=== PATIENT | male | born 1950 | race Caucasian/White ===

== ENCOUNTER 2016-06-14 15:21 | Inpatient (IN) | payer MEDICARE, OTHER ==
[~2016-06-14] VITALS: Ht 170.2 cm; Wt 47.6 kg
[~2016-06-14 15:21] MED LIST: ASPI-482 PO; BUDE10.2 IH; DILT30TA26 PO; FLUO10CA13 PO; OXYB5TAB PO; PROAIR HFA8.5 GM IH; TIOT18CA IH
[2016-06-14 16:00] VITALS: BP 121/60
[2016-06-14] MEDS ORDERED: HEPARIN PF for SUB-Q USE 5,000 UNIT/0.5 ML VIAL. SQ SCH (16:00)
[2016-06-14] MEDS ORDERED: MORPHINE SULFATE 2 MG/ML DISP.SYRIN. IV PRN (16:00)
[2016-06-14] MEDS ORDERED: ALBUTEROL SULFATE 2.5 MG/3 ML NEBU. NEB PRN (16:00)
[2016-06-14] MEDS ORDERED: ACETAMINOPHEN 325 MG TABLET. PO PRN (16:00)
[2016-06-14] MEDS: IPRATRPIUM/ALBUTEROL 0.5/2.5MG 3 ML NEBU. NEB SCH ×2 (16:00→20:23)
[2016-06-14] MEDS ORDERED: ONDANSETRON PF 4 MG/2 ML VIAL. IV PRN (16:00)
[2016-06-14 16:24] LABS: BASO % 0 % (0-3); EOS % 0 % (0-3); HEMATOCRIT 39.1 % (39.0-53.0); HEMOGLOBIN 12.4 g/dL (13.0-17.5); LYMPH # 0.2 x10^3/uL (1.0-4.8); LYMPH % 2 % (24-48); MEAN CORPUSCULAR HEMOGLOBIN 30 pg (25-35); MEAN CORPUSCULAR HGB CONC 32 g/dL (31-37); MEAN CORPUSCULAR VOLUME 95 fL (79-100); MONO % 1 % (0-9); NEUT % 97 % (31-73); PLATELET COUNT 303 x10^3/uL (140-400); RED CELL DISTRIBUTION WIDTH 13.8 % (11.5-14.5); WHITE BLOOD COUNT 9.8 x10^3/uL (4.0-11.0)
[2016-06-14 16:32] LABS: PROTHROMBIN TIME PATIENT 12.4 SEC (11.7-14.0)
[2016-06-14 16:41] LABS: CALCIUM 9.2 mg/dL (8.5-10.1); CREATININE 0.8 mg/dL (0.7-1.3); GFR 96.1; POTASSIUM 4.7 mmol/L (3.5-5.1)
[2016-06-14 16:47] LABS: % BASOS 2 % (0-3); PLT ESTIMATE ADEQUATE (ADEQUATE)
[2016-06-14] MEDS ORDERED: LORA0.5T PO (16:51)
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
[2016-06-14] MEDS ORDERED: DILTIAZEM HCL 30 MG TABLET PO SCH (17:00)
--- NOTE | 2016-06-14 17:03 | RAD ---
Portable AP upright view CXR: Clinical indications: COPD. Comparison: March 28, 2015. Findings: Hyperinflation is seen consistent with COPD. No acute lung infiltrate or pleural effusion or pulmonary edema or lung mass or pneumothorax is seen. The heart size, pulmonary vasculature, mediastinum and both guy are unremarkable. Old healed left rib cage fractures are seen. Impression: No acute radiographic abnormality is seen. COPD
--- NOTE | 2016-06-14 17:40 | EKG ---
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
[2016-06-14] MEDS: ENOXAPARIN 40 MG/0.4 ML SYRINGE. SQ SCH (18:42)
[2016-06-14] MEDS: FLUOXETINE HCL 10 MG PO SCH (18:42)
[2016-06-14] MEDS: LORAZEPAM 0.5 MG TABLET. PO PRN (18:42)
[2016-06-14] MEDS: methylPREDNISolone SOD SUCC PF 40 MG/ML VIAL. IV SCH ×2 (18:42→21:17)
[2016-06-14 19:00] VITALS: BP 124/67
[2016-06-14] MEDS ORDERED: IPRATRPIUM/ALBUTEROL 0.5/2.5MG 3 ML NEBU. NEB SCH (20:00)
[2016-06-14] MEDS: BUDESONIDE 0.5 MG/2 ML NEBU. NEB SCH (20:26)
[2016-06-14] MEDS ORDERED: LORAZEPAM 0.5 MG TABLET. PO SCH (21:00)
[2016-06-14] MEDS ORDERED: NON FORMULARY ITEM (Budesonide/Formoterol Fumarate (Symbicort 160-4.5 Mcg Inhaler) 2 PUFF) IH SCH (21:00)
[2016-06-14] MEDS: FAMOTIDINE 20 MG TABLET. PO SCH (21:16)
[2016-06-14] MEDS: OXYBUTYNIN CHLORIDE 5 MG TABLET PO SCH (21:16)
[2016-06-14] MEDS: DOXYCYCLINE HYCLATE 100 MG TABLET PO SCH (21:16)
[2016-06-14 23:00] VITALS: BP 117/67
[2016-06-15 03:00] VITALS: BP 117/61
[2016-06-15 05:32] LABS: BASO % 0 % (0-3); EOS % 0 % (0-3); HEMATOCRIT 34.8 % (39.0-53.0); HEMOGLOBIN 11.3 g/dL (13.0-17.5); LYMPH # 0.5 x10^3/uL (1.0-4.8); LYMPH % 7 % (24-48); MEAN CORPUSCULAR HEMOGLOBIN 31 pg (25-35); MEAN CORPUSCULAR HGB CONC 33 g/dL (31-37); MEAN CORPUSCULAR VOLUME 94 fL (79-100); MONO % 2 % (0-9); NEUT % 91 % (31-73); PLATELET COUNT 277 x10^3/uL (140-400); RED BLOOD COUNT 3.71 x10^6/uL (4.30-5.70); RED CELL DISTRIBUTION WIDTH 13.7 % (11.5-14.5)
[2016-06-15 05:42] LABS: CALCIUM 8.8 mg/dL (8.5-10.1); CREATININE 0.8 mg/dL (0.7-1.3); GFR 96.1; POTASSIUM 4.6 mmol/L (3.5-5.1)
[2016-06-15 07:58] VITALS: BP 113/67
[2016-06-15] MEDS: IPRATRPIUM/ALBUTEROL 0.5/2.5MG 3 ML NEBU. NEB SCH ×4 (08:03→21:05)
[2016-06-15] MEDS: BUDESONIDE 0.5 MG/2 ML NEBU. NEB SCH ×2 (08:03→21:05)
[2016-06-15] MEDS: ASPIRIN ENTERIC COATED 81 MG TABLET.DR. PO SCH (08:46)
[2016-06-15] MEDS: methylPREDNISolone SOD SUCC PF 40 MG/ML VIAL. IV SCH ×2 (08:46→21:40)
[2016-06-15] MEDS: DOXYCYCLINE HYCLATE 100 MG TABLET PO SCH ×2 (08:46→21:40)
[2016-06-15] MEDS: OXYBUTYNIN CHLORIDE 5 MG TABLET PO SCH (08:46)
[2016-06-15] MEDS: FLUOXETINE HCL 10 MG PO SCH (08:47)
[2016-06-15] MEDS: LORAZEPAM 0.5 MG TABLET. PO PRN (08:47)
[2016-06-15] MEDS ORDERED: NON FORMULARY ITEM (Tiotropium Bromide (Spiriva) 2 INH) IH SCH (09:00)
--- NOTE | 2016-06-15 09:19 | PDOC ---
Provider Note Provider Note [id number] acute on chronic resp fail ae of copd acute bronchitis steroid, abx, see orders. RICHMOND GARCIA MD Jun 15, 2016 09:19
[2016-06-15 09:37] LABS: BILIRUBIN,URINE NEGATIVE (NEG); GLUCOSE,URINE >=1000 mg/dL (NEG); NITRITE,URINE NEGATIVE (NEG); PH,URINE 6.5; PROTEIN,URINE NEGATIVE (NEG-TRACE); UROBILINOGEN,URINE 0.2 mg/dL (0.2 mg/dL)
--- NOTE | 2016-06-15 09:50 | CONS ---
DATE OF CONSULTATION: 06/15/2016 I was asked to see this 66-year-old gentleman for [id number] respiratory failure, acute exacerbation of COPD. HISTORY OF PRESENT ILLNESS: He has history of 43-kman-furl smoking, stopped smoking in 1998. He is on oxygen at 2-4 liters per minute via nasal cannula. He has not felt good for the past week. He has had increased shortness of breath, cough with yellowish-greenish sputum production, wheezing, runny nose and gastroesophageal reflux symptoms. He denies chest pain. PAST MEDICAL HISTORY: Hypertension, COPD, chronic respiratory failure. SOCIAL HISTORY: History of 51-yrnw-dlhe smoking, stopped smoking in 1998. FAMILY HISTORY: Positive for hypertension. ALLERGIES: PENICILLIN AND SERTRALINE. MEDICATIONS: Currently he is on Solu-Medrol 40 mg IV every 12 hours, aspirin, Pepcid, doxycycline 100 b.i.d., Pulmicort, Lovenox 40 mg daily, Ativan, DuoNeb q.i.d. REVIEW OF SYSTEMS: As mentioned as above, other systems are otherwise negative. PHYSICAL EXAMINATION: GENERAL: He is a thin gentleman. VITAL SIGNS: His O2 saturation is 96% on 2 liters of oxygen, respiratory rate 20, heart rate 82, blood pressure 132/67, temperature 98. HEENT: Normocephalic, atraumatic. Pupils are equal, round, and reactive to light. Throat is clear. Nose: There is inflamed mucosa. NECK: There is no JVD, lymphadenopathy or thyromegaly. CARDIOVASCULAR: Regular rate and rhythm. Distant heart sounds. PMI is not displaced. CHEST: Inspection is normal. LUNGS: There are diminished breath sounds and expiratory wheezing. ABDOMEN: Soft. Bowel sounds are good. There is no mass. EXTREMITIES: There is no edema. LYMPHATICS: There is no lymphadenopathy. NEUROLOGIC: He is alert and oriented. SKIN: Chronic changes. LABORATORY DATA: I reviewed the following lab data: Chest x-ray shows COPD changes, no infiltrate. WBC 7, hemoglobin 11.3, platelets 277. Sodium 138, potassium 4.6, chloride 101, CO2 is 34, glucose 249, BUN 19, creatinine 0.8. IMPRESSION: 1. Acute on chronic respiratory failure, multifactorial in etiology including acute exacerbation of chronic obstructive pulmonary disease and acute bronchitis. 2. Acute exacerbation of chronic obstructive pulmonary disease. 3. Acute bronchitis. 4. Hypertension. 5. Anemia. 6. Elevated blood glucose. 7. Allergic rhinitis. PLAN AND RECOMMENDATIONS: 1. Titrate FiO2 to keep O2 saturation 92%. 2. DuoNeb. 3. Pulmicort. 4. Solu-Medrol 40 mg IV every 12 hours. 5. Doxycycline. 6. Lovenox and Pepcid for stress ulcer prophylaxis. 7. Add Singulair. 8. Monitor respiratory status very closely. 9. The findings and recommendations were discussed with the patient. He understood and agreed to proceed with the plan. I have answered all of his questions. Thank you very much for allowing me to participate in care of this very nice gentleman. RICHMOND GARCIA M.D. : Moustapha JOB#: [id number] / [id number] MIKHAIL
[2016-06-15 10:17] VITALS: BP 115/67
[2016-06-15 10:19] LABS: BACTERIA,URINE 0 /HPF (0-FEW); RBC,URINE 0 /HPF (0-2); SQUAMOUS EPITHELIAL CELL,UR FEW /LPF
--- NOTE | 2016-06-15 12:53 | PDOC ---
PROGRESS NOTES Chief Complaint Chief Complaint 1. dyspnea , copd exacerbation 2. chronic resp failure 3. mal nutrition, moderate 4. h/o CAD 5. HTN 6. stable systolic CHF History of Present Illness History of Present Illness Breathing better CLaims quit smoking Dec BS on ausculattion, mild to mod wheezing Eating lunch CXR neg Hgb 11. WBC 7 Transferred from [place] pCO2 was 60s - was on BIPA P at [place]: CPM Per pulmo PT/OT OK to t.o CVC Dw RN Vitals Vitals Vital Signs Date Time Temp Pulse Resp B/P Pulse Ox O2 Delivery O2 Flow Rate FiO2 06/15/16 12:05 97 Nasal Cannula 2.0 06/15/16 10:17 98.1 85 18 115/67 98.1 Physical Exam General: Alert, Oriented X3, Cooperative, No acute distress Lungs: Clear, Other (dec BS, wheexzing mild to mod) Abdomen: Normal bowel sounds Extremities: No clubbing, No cyanosis Skin: No rashes, No breakdown Labs LABS Laboratory Tests Test 06/14/16 16:15 06/15/16 01:00 06/15/16 04:00 White Blood Count 9.8x10^3/uL (4.0-11.0) 7.0x10^3/uL (4.0-11.0) Red Blood Count 4.10x10^6/uL (4.30-5.70) 3.71x10^6/uL (4.30-5.70) Hemoglobin 12.4g/dL (13.0-17.5) 11.3g/dL (13.0-17.5) Hematocrit 39.1% (39.0-53.0) 34.8% (39.0-53.0) Mean Corpuscular Volume 95fL (79-100) 94fL (79-100) Mean Corpuscular Hemoglobin 30pg (25-35) 31pg (25-35) Mean Corpuscular Hemoglobin Concent 32g/dL (31-37) 33g/dL (31-37) Red Cell Distribution Width 13.8% (11.5-14.5) 13.7% (11.5-14.5) Platelet Count 303x10^3/uL (140-400) 277x10^3/uL (140-400) Neutrophils (%) (Auto) 97% (31-73) 91% (31-73) Lymphocytes (%) (Auto) 2% (24-48) 7% (24-48) Monocytes (%) (Auto) 1% (0-9) 2% (0-9) Eosinophils (%) (Auto) 0% (0-3) 0% (0-3) Basophils (%) (Auto) 0% (0-3) 0% (0-3) Neutrophils # (Auto) 9.5x10^3uL (1.8-7.7) 6.4x10^3uL (1.8-7.7) Lymphocytes # (Auto) 0.2x10^3/uL (1.0-4.8) 0.5x10^3/uL (1.0-4.8) Monocytes # (Auto) 0.1x10^3/uL (0.0-1.1) 0.2x10^3/uL (0.0-1.1) Eosinophils # (Auto) 0.0x10^3/uL (0.0-0.7) 0.0x10^3/uL (0.0-0.7) Basophils # (Auto) 0.0x10^3/uL (0.0-0.2) 0.0x10^3/uL (0.0-0.2) Segmented Neutrophils % 94% (35-66) Band Neutrophils % 1% (0-9) Lymphocytes % 3% (24-48) Basophils % 2% (0-3) Platelet Estimate Adequate (ADEQUATE) Prothrombin Time 12.4SEC (11.7-14.0) Prothromb Time International Ratio 1.0 (0.8-1.1) Sodium Level 142mmol/L (136-145) 138mmol/L (136-145) Potassium Level 4.7mmol/L (3.5-5.1) 4.6mmol/L (3.5-5.1) Chloride Level 101mmol/L (98-107) 101mmol/L (98-107) Carbon Dioxide Level 37mmol/L (21-32) 34mmol/L (21-32) Anion Gap 4 (6-14) 3 (6-14) Blood Urea Nitrogen 21mg/dL (8-26) 19mg/dL (8-26) Creatinine 0.8mg/dL (0.7-1.3) 0.8mg/dL (0.7-1.3) Estimated GFR (Cockcroft-Gault) 96.1 96.1 Glucose Level 215mg/dL (70-99) 249mg/dL (70-99) Calcium Level 9.2mg/dL (8.5-10.1) 8.8mg/dL (8.5-10.1) Urine Color Yellow Urine Clarity Clear Urine pH 6.5 Urine Specific [place] 1.025 Urine Protein Negativemg/dL (NEG-TRACE) Urine Glucose (UA) >=1000mg/dL (NEG) Urine Ketones (Stick) Negativemg/dL (NEG) Urine Blood Negative (NEG) Urine Nitrite Negative (NEG) Urine Bilirubin Negative (NEG) Urine Urobilinogen Dipstick 0.2mg/dL (0.2 mg/dL) Urine Leukocyte Esterase Negative (NEG) Urine RBC 0/HPF (0-2) Urine WBC 1-4/HPF (0-4) Urine Squamous Epithelial Cells Few/LPF Urine Bacteria 0/HPF (0-FEW) Review of Systems Review of Systems no inc soa, cp, n,v,d Assessment and Plan Assessmemt and Plan Problems Medical Problems: (1) COPD exacerbation Status: Acute Problems: Comment Review of Relevant I have reviewed the following items domo (where applicable) has been applied. Labs Laboratory Tests Test 06/14/16 16:15 06/15/16 01:00 06/15/16 04:00 White Blood Count 9.8x10^3/uL (4.0-11.0) 7.0x10^3/uL (4.0-11.0) Red Blood Count 4.10x10^6/uL (4.30-5.70) 3.71x10^6/uL (4.30-5.70) Hemoglobin 12.4g/dL (13.0-17.5) 11.3g/dL (13.0-17.5) Hematocrit 39.1% (39.0-53.0) 34.8% (39.0-53.0) Mean Corpuscular Volume 95fL (79-100) 94fL (79-100) Mean Corpuscular Hemoglobin 30pg (25-35) 31pg (25-35) Mean Corpuscular Hemoglobin Concent 32g/dL (31-37) 33g/dL (31-37) Red Cell Distribution Width 13.8% (11.5-14.5) 13.7% (11.5-14.5) Platelet Count 303x10^3/uL (140-400) 277x10^3/uL (140-400) Neutrophils (%) (Auto) 97% (31-73) 91% (31-73) Lymphocytes (%) (Auto) 2% (24-48) 7% (24-48) Monocytes (%) (Auto) 1% (0-9) 2% (0-9) Eosinophils (%) (Auto) 0% (0-3) 0% (0-3) Basophils (%) (Auto) 0% (0-3) 0% (0-3) Neutrophils # (Auto) 9.5x10^3uL (1.8-7.7) 6.4x10^3uL (1.8-7.7) Lymphocytes # (Auto) 0.2x10^3/uL (1.0-4.8) 0.5x10^3/uL (1.0-4.8) Monocytes # (Auto) 0.1x10^3/uL (0.0-1.1) 0.2x10^3/uL (0.0-1.1) Eosinophils # (Auto) 0.0x10^3/uL (0.0-0.7) 0.0x10^3/uL (0.0-0.7) Basophils # (Auto) 0.0x10^3/uL (0.0-0.2) 0.0x10^3/uL (0.0-0.2) Segmented Neutrophils % 94% (35-66) Band Neutrophils % 1% (0-9) Lymphocytes % 3% (24-48) Basophils % 2% (0-3) Platelet Estimate Adequate (ADEQUATE) Prothrombin Time 12.4SEC (11.7-14.0) Prothromb Time International Ratio 1.0 (0.8-1.1) Sodium Level 142mmol/L (136-145) 138mmol/L (136-145) Potassium Level 4.7mmol/L (3.5-5.1) 4.6mmol/L (3.5-5.1) Chloride Level 101mmol/L (98-107) 101mmol/L (98-107) Carbon Dioxide Level 37mmol/L (21-32) 34mmol/L (21-32) Anion Gap 4 (6-14) 3 (6-14) Blood Urea Nitrogen 21mg/dL (8-26) 19mg/dL (8-26) Creatinine 0.8mg/dL (0.7-1.3) 0.8mg/dL (0.7-1.3) Estimated GFR (Cockcroft-Gault) 96.1 96.1 Glucose Level 215mg/dL (70-99) 249mg/dL (70-99) Calcium Level 9.2mg/dL (8.5-10.1) 8.8mg/dL (8.5-10.1) Urine Color Yellow Urine Clarity Clear Urine pH 6.5 Urine Specific [place] 1.025 Urine Protein Negativemg/dL (NEG-TRACE) Urine Glucose (UA) >=1000mg/dL (NEG) Urine Ketones (Stick) Negativemg/dL (NEG) Urine Blood Negative (NEG) Urine Nitrite Negative (NEG) Urine Bilirubin Negative (NEG) Urine Urobilinogen Dipstick 0.2mg/dL (0.2 mg/dL) Urine Leukocyte Esterase Negative (NEG) Urine RBC 0/HPF (0-2) Urine WBC 1-4/HPF (0-4) Urine Squamous Epithelial Cells Few/LPF Urine Bacteria 0/HPF (0-FEW) Laboratory Tests Test 06/14/16 16:15 06/15/16 01:00 06/15/16 04:00 White Blood Count 9.8x10^3/uL (4.0-11.0) 7.0x10^3/uL (4.0-11.0) Red Blood Count 4.10x10^6/uL (4.30-5.70) 3.71x10^6/uL (4.30-5.70) Hemoglobin 12.4g/dL (13.0-17.5) 11.3g/dL (13.0-17.5) Hematocrit 39.1% (39.0-53.0) 34.8% (39.0-53.0) Mean Corpuscular Volume 95fL (79-100) 94fL (79-100) Mean Corpuscular Hemoglobin 30pg (25-35) 31pg (25-35) Mean Corpuscular Hemoglobin Concent 32g/dL (31-37) 33g/dL (31-37) Red Cell Distribution Width 13.8% (11.5-14.5) 13.7% (11.5-14.5) Platelet Count 303x10^3/uL (140-400) 277x10^3/uL (140-400) Neutrophils (%) (Auto) 97% (31-73) 91% (31-73) Lymphocytes (%) (Auto) 2% (24-48) 7% (24-48) Monocytes (%) (Auto) 1% (0-9) 2% (0-9) Eosinophils (%) (Auto) 0% (0-3) 0% (0-3) Basophils (%) (Auto) 0% (0-3) 0% (0-3) Neutrophils # (Auto) 9.5x10^3uL (1.8-7.7) 6.4x10^3uL (1.8-7.7) Lymphocytes # (Auto) 0.2x10^3/uL (1.0-4.8) 0.5x10^3/uL (1.0-4.8) Monocytes # (Auto) 0.1x10^3/uL (0.0-1.1) 0.2x10^3/uL (0.0-1.1) Eosinophils # (Auto) 0.0x10^3/uL (0.0-0.7) 0.0x10^3/uL (0.0-0.7) Basophils # (Auto) 0.0x10^3/uL (0.0-0.2) 0.0x10^3/uL (0.0-0.2) Segmented Neutrophils % 94% (35-66) Band Neutrophils % 1% (0-9) Lymphocytes % 3% (24-48) Basophils % 2% (0-3) Platelet Estimate Adequate (ADEQUATE) Prothrombin Time 12.4SEC (11.7-14.0) Prothromb Time International Ratio 1.0 (0.8-1.1) Sodium Level 142mmol/L (136-145) 138mmol/L (136-145) Potassium Level 4.7mmol/L (3.5-5.1) 4.6mmol/L (3.5-5.1) Chloride Level 101mmol/L (98-107) 101mmol/L (98-107) Carbon Dioxide Level 37mmol/L (21-32) 34mmol/L (21-32) Anion Gap 4 (6-14) 3 (6-14) Blood Urea Nitrogen 21mg/dL (8-26) 19mg/dL (8-26) Creatinine 0.8mg/dL (0.7-1.3) 0.8mg/dL (0.7-1.3) Estimated GFR (Cockcroft-Gault) 96.1 96.1 Glucose Level 215mg/dL (70-99) 249mg/dL (70-99) Calcium Level 9.2mg/dL (8.5-10.1) 8.8mg/dL (8.5-10.1) Urine Color Yellow Urine Clarity Clear Urine pH 6.5 Urine Specific [place] 1.025 Urine Protein Negativemg/dL (NEG-TRACE) Urine Glucose (UA) >=1000mg/dL (NEG) Urine Ketones (Stick) Negativemg/dL (NEG) Urine Blood Negative (NEG) Urine Nitrite Negative (NEG) Urine Bilirubin Negative (NEG) Urine Urobilinogen Dipstick 0.2mg/dL (0.2 mg/dL) Urine Leukocyte Esterase Negative (NEG) Urine RBC 0/HPF (0-2) Urine WBC 1-4/HPF (0-4) Urine Squamous Epithelial Cells Few/LPF Urine Bacteria 0/HPF (0-FEW) Medications Current Medications Ondansetron HCl (Zofran) 4 mg PRN Q6HRS PRN IV NAUSEA/VOMITING; Start 06/14/16 at 16:00 Morphine Sulfate 1 mg PRN Q1HR PRN IV PAIN; Start 06/14/16 at 16:00 Acetaminophen (Tylenol) 650 mg PRN Q6HRS PRN PO MILD PAIN / TEMP; Start at 16:00 Heparin Sodium (Porcine) 5,000 unit Q8HRS SQ ; Start 06/14/16 at 16:00; Stop 06/14 at 18:33; Status DC Albuterol/ Ipratropium (Duoneb) 3 ml RTQID NEB Last administered on 06/15/16 12 :05; Start 06/14/16 at 16:00 Albuterol Sulfate (Ventolin Neb Soln) 2.5 mg PRN Q4HRS PRN NEB SHORTNESS OF BREATH; Start 06/14/16 at 16:00 Aspirin (Ecotrin) 81 mg DAILY PO Last administered on 06/15/16 08:46; Start 06/15/16 at 09:00 Diltiazem HCl (Cardizem) 30 mg DAILY PO ; Start 06/14/16 at 17:00; Stop 06/14/16 at 17:00; Status DC Fluoxetine HCl (Prozac) 10 mg DAILYWBKFT PO Last administered on 06/15/16 08:47 ; Start 06/14/16 at 17:00 Non-Formulary Medication 2 puff BID IH ; Start 06/14/16 at 21:00; Stop 06/14/16 at 21:00; Status DC Oxybutynin Chloride (Ditropan) 5 mg DAILY PO Last administered on 06/15/16 08: 46; Start 06/14/16 at 21:00 Non-Formulary Medication 2 inh DAILY IH ; Start 06/15/16 at 09:00; Stop 06/15/16 at 09:00; Status DC Methylprednisolone Sodium Succinate (Solu-Medrol 40mg Vial) 40 mg Q12HR IV Last administered on 06/15/16 08:46; Start 06/14/16 at 17:00 Albuterol/ Ipratropium (Duoneb) 3 ml RTQID NEB ; Start 06/14/16 at 20:00; Stop at 20:00; Status DC Budesonide (Pulmicort) 0.5 mg RTBID NEB Last administered on 06/15/16 08:03; Start 06/14/16 at 20:00 Doxycycline Hyclate (Vibra-Tab) 100 mg BID PO Last administered on 06/15/16 08: 46; Start 06/14/16 at 21:00 Lorazepam (Ativan) 0.5 mg TID PO ; Start 06/14/16 at 21:00; Stop 06/14/16 at 21:00 ; Status DC Lorazepam (Ativan) 0.5 mg PRN TID PRN PO ANXIETY / AGITATION Last administered on 06/15/16 08:47; Start 06/14/16 at 18:00 Enoxaparin Sodium (Lovenox 40mg Syringe) 40 mg Q24H SQ Last administered on 06/14 18:42; Start 06/14/16 at 17:00 Famotidine (Pepcid) 20 mg QHS PO Last administered on 06/14/16 21:16; Start 06/14/16 at 21:00 Montelukast Sodium (Singulair) 10 mg QHS PO ; Start 06/15/16 at 21:00 Active Scripts Active Reported Lorazepam 0.5 Mg Tablet 0.5 Mg PO TID Symbicort 160-4.5 Mcg Inhaler (Budesonide/Formoterol Fumarate) 10.2 Gm Hfa.aer.ad 2 Puff IH BID Spiriva (Tiotropium Elverta) 18 Mcg Cap.w.dev 2 Inh IH DAILY Proair Hfa Inhaler (Albuterol Sulfate) 8.5 Gm Hfa.aer.ad 2 Puff IH PRN Q4-6HRS Oxybutynin Chloride Er (Oxybutynin Chloride) 5 Mg Tab.er.24 1 Tab PO DAILY Aspir 81 (Aspirin) 81 Mg Tablet.dr 1 Tab PO DAILY Prozac (Fluoxetine Hcl) 10 Mg Capsule 1 Cap PO [id number] Cardizem Tablet (Diltiazem Hcl) 30 Mg Tablet 30 Mg PO DAILY Vitals/I & O Vital Sign - Last 24 Hours 06/14/16 06/14/16 06/14/16 06/14/16 16:00 16:30 19:00 20:29 Temp 98.0 98.1 98.0 98.1 Pulse 89 87 Resp 18 18 B/P 121/60 124/67 Pulse Ox 95 97 95 O2 Delivery Nasal Cannula Nasal Cannula Nasal Cannula Nasal Cannula O2 Flow Rate 2.0 2.0 2.0 2.0 06/14/16 06/14/16 06/15/16 06/15/16 20:30 23:00 03:00 07:58 Temp 97.6 97.9 98.0 97.6 97.9 98.0 Pulse 84 88 82 Resp 18 16 20 B/P 117/67 117/61 113/67 Pulse Ox 95 96 96 O2 Delivery Nasal Cannula Nasal Cannula Nasal Cannula Nasal Cannula O2 Flow Rate 2.0 2.0 2.0 2.0 06/15/16 06/15/16 06/15/16 06/15/16 08:00 08:04 10:17 12:05 Temp 98.1 98.1 Pulse 85 Resp 18 B/P 115/67 Pulse Ox 97 96 97 O2 Delivery Nasal Cannula Nasal Cannula Nasal Cannula Nasal Cannula O2 Flow Rate 2.0 2.0 2.0 2.0 Intake and Output 06/14/16 06/14/16 06/15/16 15:00 23:00 07:00 Intake Total 900 ml Output Total 675 ml 500 ml Balance 225 ml -500 ml JUAN CRAIG MD Jun 15, 2016 12:53
[2016-06-15 14:27] VITALS: BP 124/60
[2016-06-15] MEDS: ENOXAPARIN 40 MG/0.4 ML SYRINGE. SQ SCH (17:32)
[2016-06-15 19:00] VITALS: BP 133/73
[2016-06-15] MEDS: MONTELUKAST SODIUM 10 MG TABLET. PO SCH (21:40)
[2016-06-15] MEDS: FAMOTIDINE 20 MG TABLET. PO SCH (21:40)
[2016-06-15 23:00] VITALS: BP 142/82
[2016-06-16 03:00] VITALS: BP 134/74
[2016-06-16 07:10] VITALS: BP 115/79
[2016-06-16] MEDS: BUDESONIDE 0.5 MG/2 ML NEBU. NEB SCH ×2 (08:02→19:42)
[2016-06-16] MEDS: IPRATRPIUM/ALBUTEROL 0.5/2.5MG 3 ML NEBU. NEB SCH ×4 (08:02→19:42)
[2016-06-16 08:40] LABS: OBC FLU VALID
[2016-06-16] MEDS: OXYBUTYNIN CHLORIDE 5 MG TABLET PO SCH (09:17)
[2016-06-16] MEDS: ASPIRIN ENTERIC COATED 81 MG TABLET.DR. PO SCH (09:17)
[2016-06-16] MEDS: FLUOXETINE HCL 10 MG PO SCH (09:17)
[2016-06-16] MEDS: DOXYCYCLINE HYCLATE 100 MG TABLET PO SCH ×2 (09:17→20:26)
[2016-06-16] MEDS: methylPREDNISolone SOD SUCC PF 40 MG/ML VIAL. IV SCH ×2 (09:17→20:26)
[2016-06-16 10:50] VITALS: BP 126/61
--- NOTE | 2016-06-16 14:24 | PDOC ---
PULMONARY PROGRESS NOTES Subjective feels better less soa Vitals Vital Signs Date Time Temp Pulse Resp B/P Pulse Ox O2 Delivery O2 Flow Rate FiO2 06/16/16 12:05 95 Nasal Cannula 2.0 06/16/16 10:50 97.8 109 16 126/61 97.8 ROS: No Nausea, No Chest Pain, No Abdominal Pain, No Increase Cough General: Alert, No acute distress Lungs: Clear Cardiovascular: S1, S2 Abdomen: Soft, Non-tender Neuro Exam: Alert Extremities: No Edema Skin: Warm Labs Laboratory Tests Test 06/14/16 16:15 06/15/16 01:00 06/15/16 04:00 06/16/16 08:10 White Blood Count 9.8x10^3/uL (4.0-11.0) 7.0x10^3/uL (4.0-11.0) Red Blood Count 4.10x10^6/uL (4.30-5.70) 3.71x10^6/uL (4.30-5.70) Hemoglobin 12.4g/dL (13.0-17.5) 11.3g/dL (13.0-17.5) Hematocrit 39.1% (39.0-53.0) 34.8% (39.0-53.0) Mean Corpuscular Volume 95fL (79-100) 94fL (79-100) Mean Corpuscular Hemoglobin 30pg (25-35) 31pg (25-35) Mean Corpuscular Hemoglobin Concent 32g/dL (31-37) 33g/dL (31-37) Red Cell Distribution Width 13.8% (11.5-14.5) 13.7% (11.5-14.5) Platelet Count 303x10^3/uL (140-400) 277x10^3/uL (140-400) Neutrophils (%) (Auto) 97% (31-73) 91% (31-73) Lymphocytes (%) (Auto) 2% (24-48) 7% (24-48) Monocytes (%) (Auto) 1% (0-9) 2% (0-9) Eosinophils (%) (Auto) 0% (0-3) 0% (0-3) Basophils (%) (Auto) 0% (0-3) 0% (0-3) Neutrophils # (Auto) 9.5x10^3uL (1.8-7.7) 6.4x10^3uL (1.8-7.7) Lymphocytes # (Auto) 0.2x10^3/uL (1.0-4.8) 0.5x10^3/uL (1.0-4.8) Monocytes # (Auto) 0.1x10^3/uL (0.0-1.1) 0.2x10^3/uL (0.0-1.1) Eosinophils # (Auto) 0.0x10^3/uL (0.0-0.7) 0.0x10^3/uL (0.0-0.7) Basophils # (Auto) 0.0x10^3/uL (0.0-0.2) 0.0x10^3/uL (0.0-0.2) Segmented Neutrophils % 94% (35-66) Band Neutrophils % 1% (0-9) Lymphocytes % 3% (24-48) Basophils % 2% (0-3) Platelet Estimate Adequate (ADEQUATE) Prothrombin Time 12.4SEC (11.7-14.0) Prothromb Time International Ratio 1.0 (0.8-1.1) Sodium Level 142mmol/L (136-145) 138mmol/L (136-145) Potassium Level 4.7mmol/L (3.5-5.1) 4.6mmol/L (3.5-5.1) Chloride Level 101mmol/L (98-107) 101mmol/L (98-107) Carbon Dioxide Level 37mmol/L (21-32) 34mmol/L (21-32) Anion Gap 4 (6-14) 3 (6-14) Blood Urea Nitrogen 21mg/dL (8-26) 19mg/dL (8-26) Creatinine 0.8mg/dL (0.7-1.3) 0.8mg/dL (0.7-1.3) Estimated GFR (Cockcroft-Gault) 96.1 96.1 Glucose Level 215mg/dL (70-99) 249mg/dL (70-99) Calcium Level 9.2mg/dL (8.5-10.1) 8.8mg/dL (8.5-10.1) Urine Color Yellow Urine Clarity Clear Urine pH 6.5 Urine Specific [place] 1.025 Urine Protein Negativemg/dL (NEG-TRACE) Urine Glucose (UA) >=1000mg/dL (NEG) Urine Ketones (Stick) Negativemg/dL (NEG) Urine Blood Negative (NEG) Urine Nitrite Negative (NEG) Urine Bilirubin Negative (NEG) Urine Urobilinogen Dipstick 0.2mg/dL (0.2 mg/dL) Urine Leukocyte Esterase Negative (NEG) Urine RBC 0/HPF (0-2) Urine WBC 1-4/HPF (0-4) Urine Squamous Epithelial Cells Few/LPF Urine Bacteria 0/HPF (0-FEW) Influenza Type A Antigen Negative (NEGATIVE) Influenza Type B Antigen Negative (NEGATIVE) Laboratory Tests Test 06/16/16 08:10 Influenza Type A Antigen Negative (NEGATIVE) Influenza Type B Antigen Negative (NEGATIVE) Medications Active Scripts Medications Dose Route/Sig Days Date Category Lorazepam 0.5 Mg Tablet 0.5 Mg PO TID 06/14/16 Reported Symbicort 160-4.5 Mcg Inhaler (Budesonide/Formoterol Fumarate) 10.2 Gm Hfa.aer.ad 2 Puff IH BID 03/14/15 Reported Spiriva (Tiotropium [place]) 18 Mcg Cap.w.dev 2 Inh IH DAILY 03/14/15 Reported Proair Hfa Inhaler (Albuterol Sulfate) 8.5 Gm Hfa.aer.ad 2 Puff IH PRN Q4-6HRS 03/14/15 Reported Oxybutynin Chloride Er (Oxybutynin Chloride) 5 Mg Tab.er.24 1 Tab PO DAILY 03/14/15 Reported Aspir 81 (Aspirin) 81 Mg Tablet.dr 1 Tab PO DAILY 03/14/15 Reported Prozac (Fluoxetine Hcl) 10 Mg Capsule 1 Cap PO DAILYWBKFT 03/14/15 Reported Cardizem Tablet (Diltiazem Hcl) 30 Mg Tablet 30 Mg PO DAILY 03/14/15 Reported Impression . 1. Acute on chronic respiratory failure, multifactorial in etiology including acute exacerbation of chronic obstructive pulmonary disease and acute bronchitis. 2. Acute exacerbation of chronic obstructive pulmonary disease. 3. Acute bronchitis. 4. Hypertension. 5. Anemia. 6. Elevated blood glucose. 7. Allergic rhinitis. Plan . resp stauts is compensaterd pt wants to go home in am ok by me PLAN AND RECOMMENDATIONS: 1. Titrate FiO2 to keep O2 saturation 92%. 2. DuoNeb. 3. Pulmicort. 4. Solu-Medrol 40 mg IV every 12 hours. 5. Doxycycline. 6. Lovenox and Pepcid for stress ulcer prophylaxis. 7. Add Singulair. 8. Monitor respiratory status very closely. TRAVIS COELHO MD Jun 16, 2016 14:24
--- NOTE | 2016-06-16 14:30 | PDOC ---
PROGRESS NOTES Chief Complaint Chief Complaint CC: cough A/P 1. Copd exacerbation 2. Chronic Resp failure 3. Depression 4. h/o CAD 5. HTN 6. Stable systolic CHF Plan IV SOLUMEDROL PRN NEBULIZATIONS DOXYCYCLINE MONITOR VITALS LABS REVIEWED ANTICIPATED DC IN AM PT/OT History of Present Illness History of Present Illness NO FEVER NO CHILLS COUGH Vitals Vitals Vital Signs Date Time Temp Pulse Resp B/P Pulse Ox O2 Delivery O2 Flow Rate FiO2 06/16/16 12:05 95 Nasal Cannula 2.0 06/16/16 10:50 97.8 109 16 126/61 97.8 Physical Exam General: Alert, Oriented X3, Cooperative, No acute distress Heart: Normal S1, Other ([place]. ) Lungs: Clear, Other (dec BS, wheexzing mild to mod) Abdomen: Normal bowel sounds Extremities: No clubbing, No cyanosis Skin: No rashes, No breakdown Labs LABS Laboratory Tests Test 06/16/16 08:10 Influenza Type A Antigen Negative (NEGATIVE) Influenza Type B Antigen Negative (NEGATIVE) Assessment and Plan Assessmemt and Plan Problems Medical Problems: (1) COPD exacerbation Status: Acute Problems: Comment Review of Relevant I have reviewed the following items domo (where applicable) has been applied. Labs Laboratory Tests Test 06/14/16 16:15 06/15/16 01:00 06/15/16 04:00 06/16/16 08:10 White Blood Count 9.8x10^3/uL (4.0-11.0) 7.0x10^3/uL (4.0-11.0) Red Blood Count 4.10x10^6/uL (4.30-5.70) 3.71x10^6/uL (4.30-5.70) Hemoglobin 12.4g/dL (13.0-17.5) 11.3g/dL (13.0-17.5) Hematocrit 39.1% (39.0-53.0) 34.8% (39.0-53.0) Mean Corpuscular Volume 95fL (79-100) 94fL (79-100) Mean Corpuscular Hemoglobin 30pg (25-35) 31pg (25-35) Mean Corpuscular Hemoglobin Concent 32g/dL (31-37) 33g/dL (31-37) Red Cell Distribution Width 13.8% (11.5-14.5) 13.7% (11.5-14.5) Platelet Count 303x10^3/uL (140-400) 277x10^3/uL (140-400) Neutrophils (%) (Auto) 97% (31-73) 91% (31-73) Lymphocytes (%) (Auto) 2% (24-48) 7% (24-48) Monocytes (%) (Auto) 1% (0-9) 2% (0-9) Eosinophils (%) (Auto) 0% (0-3) 0% (0-3) Basophils (%) (Auto) 0% (0-3) 0% (0-3) Neutrophils # (Auto) 9.5x10^3uL (1.8-7.7) 6.4x10^3uL (1.8-7.7) Lymphocytes # (Auto) 0.2x10^3/uL (1.0-4.8) 0.5x10^3/uL (1.0-4.8) Monocytes # (Auto) 0.1x10^3/uL (0.0-1.1) 0.2x10^3/uL (0.0-1.1) Eosinophils # (Auto) 0.0x10^3/uL (0.0-0.7) 0.0x10^3/uL (0.0-0.7) Basophils # (Auto) 0.0x10^3/uL (0.0-0.2) 0.0x10^3/uL (0.0-0.2) Segmented Neutrophils % 94% (35-66) Band Neutrophils % 1% (0-9) Lymphocytes % 3% (24-48) Basophils % 2% (0-3) Platelet Estimate Adequate (ADEQUATE) Prothrombin Time 12.4SEC (11.7-14.0) Prothromb Time International Ratio 1.0 (0.8-1.1) Sodium Level 142mmol/L (136-145) 138mmol/L (136-145) Potassium Level 4.7mmol/L (3.5-5.1) 4.6mmol/L (3.5-5.1) Chloride Level 101mmol/L (98-107) 101mmol/L (98-107) Carbon Dioxide Level 37mmol/L (21-32) 34mmol/L (21-32) Anion Gap 4 (6-14) 3 (6-14) Blood Urea Nitrogen 21mg/dL (8-26) 19mg/dL (8-26) Creatinine 0.8mg/dL (0.7-1.3) 0.8mg/dL (0.7-1.3) Estimated GFR (Cockcroft-Gault) 96.1 96.1 Glucose Level 215mg/dL (70-99) 249mg/dL (70-99) Calcium Level 9.2mg/dL (8.5-10.1) 8.8mg/dL (8.5-10.1) Urine Color Yellow Urine Clarity Clear Urine pH 6.5 Urine Specific [place] 1.025 Urine Protein Negativemg/dL (NEG-TRACE) Urine Glucose (UA) >=1000mg/dL (NEG) Urine Ketones (Stick) Negativemg/dL (NEG) Urine Blood Negative (NEG) Urine Nitrite Negative (NEG) Urine Bilirubin Negative (NEG) Urine Urobilinogen Dipstick 0.2mg/dL (0.2 mg/dL) Urine Leukocyte Esterase Negative (NEG) Urine RBC 0/HPF (0-2) Urine WBC 1-4/HPF (0-4) Urine Squamous Epithelial Cells Few/LPF Urine Bacteria 0/HPF (0-FEW) Influenza Type A Antigen Negative (NEGATIVE) Influenza Type B Antigen Negative (NEGATIVE) Laboratory Tests Test 06/16/16 08:10 Influenza Type A Antigen Negative (NEGATIVE) Influenza Type B Antigen Negative (NEGATIVE) Medications Current Medications Ondansetron HCl (Zofran) 4 mg PRN Q6HRS PRN IV NAUSEA/VOMITING; Start 06/14/16 at 16:00 Morphine Sulfate 1 mg PRN Q1HR PRN IV PAIN; Start 06/14/16 at 16:00 Acetaminophen (Tylenol) 650 mg PRN Q6HRS PRN PO MILD PAIN / TEMP Last administered on 06/15/16t 21:58; Start 06/14/16 at 16:00 Heparin Sodium (Porcine) 5,000 unit Q8HRS SQ ; Start 06/14/16 at 16:00; Stop 06/14 at 18:33; Status DC Albuterol/ Ipratropium (Duoneb) 3 ml RTQID NEB Last administered on 06/16/16 12:04; Start 06/14/16 at 16:00 Albuterol Sulfate (Ventolin Neb Soln) 2.5 mg PRN Q4HRS PRN NEB SHORTNESS OF BREATH; Start 06/14/16 at 16:00 Aspirin (Ecotrin) 81 mg DAILY PO Last administered on 06/16/16 09:17; Start at 09:00 Diltiazem HCl (Cardizem) 30 mg DAILY PO ; Start 06/14/16 at 17:00; Stop 06/14/16 at 17:00; Status DC Fluoxetine HCl (Prozac) 10 mg DAILYWBKFT PO Last administered on 06/16/16 09: 17; Start 06/14/16 at 17:00 Non-Formulary Medication 2 puff BID IH ; Start 06/14/16 at 21:00; Stop 06/14/16 at 21:00; Status DC Oxybutynin Chloride (Ditropan) 5 mg DAILY PO Last administered on 06/16/16 09: 17; Start 06/14/16 at 21:00 Non-Formulary Medication 2 inh DAILY IH ; Start 06/15/16 at 09:00; Stop 06/15/16 at 09:00; Status DC Methylprednisolone Sodium Succinate (Solu-Medrol 40mg Vial) 40 mg Q12HR IV Last administered on 06/16/16 09:17; Start 06/14/16 at 17:00 Albuterol/ Ipratropium (Duoneb) 3 ml RTQID NEB ; Start 06/14/16 at 20:00; Stop at 20:00; Status DC Budesonide (Pulmicort) 0.5 mg RTBID NEB Last administered on 06/16/16 08:02; Start 06/14/16 at 20:00 Doxycycline Hyclate (Vibra-Tab) 100 mg BID PO Last administered on 06/16/16 09 :17; Start 06/14/16 at 21:00 Lorazepam (Ativan) 0.5 mg TID PO ; Start 06/14/16 at 21:00; Stop 06/14/16 at 21:00 ; Status DC Lorazepam (Ativan) 0.5 mg PRN TID PRN PO ANXIETY / AGITATION Last administered on 06/15/16 08:47; Start 06/14/16 at 18:00 Enoxaparin Sodium (Lovenox 40mg Syringe) 40 mg Q24H SQ Last administered on 06/15 17:32; Start 06/14/16 at 17:00 Famotidine (Pepcid) 20 mg QHS PO Last administered on 06/15/16 21:40; Start 06/14/16 at 21:00 Montelukast Sodium (Singulair) 10 mg QHS PO Last administered on 06/15/16 21:40 ; Start 06/15/16 at 21:00 Active Scripts Active Reported Lorazepam 0.5 Mg Tablet 0.5 Mg PO TID Symbicort 160-4.5 Mcg Inhaler (Budesonide/Formoterol Fumarate) 10.2 Gm Hfa.aer.ad 2 Puff IH BID Spiriva (Tiotropium [place]) 18 Mcg Cap.w.dev 2 Inh IH DAILY Proair Hfa Inhaler (Albuterol Sulfate) 8.5 Gm Hfa.aer.ad 2 Puff IH PRN Q4-6HRS Oxybutynin Chloride Er (Oxybutynin Chloride) 5 Mg Tab.er.24 1 Tab PO DAILY Aspir 81 (Aspirin) 81 Mg Tablet.dr 1 Tab PO DAILY Prozac (Fluoxetine Hcl) 10 Mg Capsule 1 Cap PO DAILYWBKFT Cardizem Tablet (Diltiazem Hcl) 30 Mg Tablet 30 Mg PO DAILY Vitals/I & O Vital Sign - Last 24 Hours 06/15/16 06/15/16 06/15/16 06/15/16 17:01 19:00 20:00 21:07 Temp 97.7 97.7 Pulse 106 Resp 21 B/P 133/73 Pulse Ox 99 94 98 O2 Delivery Nasal Cannula Nasal Cannula Nasal Cannula Nasal Cannula O2 Flow Rate 2.0 2.0 2.0 2.0 06/15/16 06/16/16 06/16/16 06/16/16 23:00 03:00 07:10 08:00 Temp 98.7 97.3 98.1 98.7 97.3 98.1 Pulse 71 104 83 Resp 20 20 16 B/P 142/82 134/74 115/79 Pulse Ox 96 93 98 O2 Delivery Nasal Cannula Nasal Cannula Nasal Cannula Nasal Cannula O2 Flow Rate 2.0 2.0 2.0 2.0 06/16/16 06/16/16 06/16/16 06/16/16 08:04 08:06 10:50 12:05 Temp 97.8 97.8 Pulse 109 Resp 16 B/P 126/61 Pulse Ox 98 98 98 95 O2 Delivery Nasal Cannula Nasal Cannula Nasal Cannula Nasal Cannula O2 Flow Rate 2.0 2.0 2.0 2.0 Intake and Output 06/15/16 06/15/16 06/16/16 14:59 22:59 06:59 Intake Total 700 ml 845 ml Output Total 1150 ml 1800 ml Balance -450 ml -955 ml JAIME AGUILAR MD Jun 16, 2016 14:30
[2016-06-16 14:50] VITALS: BP 133/79
[2016-06-16] MEDS: ENOXAPARIN 40 MG/0.4 ML SYRINGE. SQ SCH (18:05)
[2016-06-16 19:46] VITALS: BP 131/65
[2016-06-16] MEDS: MONTELUKAST SODIUM 10 MG TABLET. PO SCH (20:25)
[2016-06-16] MEDS: FAMOTIDINE 20 MG TABLET. PO SCH (20:25)
[2016-06-16 23:11] VITALS: BP 141/84
[2016-06-17 03:53] VITALS: BP 138/82
[2016-06-17 07:42] VITALS: BP 110/80
[2016-06-17] MEDS: IPRATRPIUM/ALBUTEROL 0.5/2.5MG 3 ML NEBU. NEB SCH ×3 (08:32→15:23)
[2016-06-17] MEDS: BUDESONIDE 0.5 MG/2 ML NEBU. NEB SCH (08:33)
[2016-06-17] MEDS: LORAZEPAM 0.5 MG TABLET. PO PRN (08:38)
[2016-06-17] MEDS: ASPIRIN ENTERIC COATED 81 MG TABLET.DR. PO SCH (08:38)
[2016-06-17] MEDS: FLUOXETINE HCL 10 MG PO SCH (08:38)
[2016-06-17] MEDS: OXYBUTYNIN CHLORIDE 5 MG TABLET PO SCH (08:38)
[2016-06-17] MEDS: DOXYCYCLINE HYCLATE 100 MG TABLET PO SCH (08:38)
[2016-06-17] MEDS: methylPREDNISolone SOD SUCC PF 40 MG/ML VIAL. IV SCH (08:39)
[2016-06-17 11:20] VITALS: BP 141/81
--- NOTE | 2016-06-17 13:38 | PDOC ---
PULMONARY PROGRESS NOTES Subjective feels better less soa Vitals Vital Signs Date Time Temp Pulse Resp B/P Pulse Ox O2 Delivery O2 Flow Rate FiO2 06/17/16 12:01 96 Nasal Cannula 2.0 06/17/16 11:20 97.7 95 18 141/81 97.7 ROS: No Nausea, No Chest Pain, No Abdominal Pain, No Increase Cough General: Alert, No acute distress Lungs: Clear Cardiovascular: S1, S2 Abdomen: Soft, Non-tender Neuro Exam: Alert Extremities: No Edema Skin: Warm Labs Laboratory Tests Test 06/16/16 08:10 Influenza Type A Antigen Negative (NEGATIVE) Influenza Type B Antigen Negative (NEGATIVE) Medications Active Scripts Medications Dose Route/Sig Days Date Category Lorazepam 0.5 Mg Tablet 0.5 Mg PO TID 06/14/16 Reported Symbicort 160-4.5 Mcg Inhaler (Budesonide/Formoterol Fumarate) 10.2 Gm Hfa.aer.ad 2 Puff IH BID 03/14/15 Reported Spiriva (Tiotropium [place]) 18 Mcg Cap.w.dev 2 Inh IH DAILY 03/14/15 Reported Proair Hfa Inhaler (Albuterol Sulfate) 8.5 Gm Hfa.aer.ad 2 Puff IH PRN Q4-6HRS 03/14/15 Reported Oxybutynin Chloride Er (Oxybutynin Chloride) 5 Mg Tab.er.24 1 Tab PO DAILY 03/14/15 Reported Aspir 81 (Aspirin) 81 Mg Tablet.dr 1 Tab PO DAILY 03/14/15 Reported Prozac (Fluoxetine Hcl) 10 Mg Capsule 1 Cap PO DAILYWBKFT 03/14/15 Reported Cardizem Tablet (Diltiazem Hcl) 30 Mg Tablet 30 Mg PO DAILY 03/14/15 Reported Impression . 1. Acute on chronic respiratory failure. 2. Acute exacerbation of chronic obstructive pulmonary disease. 3. Acute bronchitis. 4. Hypertension. 5. Anemia. 6. Elevated blood glucose. 7. Allergic rhinitis. Plan . resp stauts is compensated ok by me to d/c taper pred TRAVIS Marmolejo MD Jun 17, 2016 13:38
[2016-06-17] MEDS ORDERED: DOXY100T PO (13:57)
[2016-06-17 14:57] VITALS: BP 139/77
[2016-06-17] MEDS: ENOXAPARIN 40 MG/0.4 ML SYRINGE. SQ SCH (16:03)
== END 2016-06-17 19:13 | disposition home or self-care (01) | DRG 189 ==
LOC: 2 SOUTH 15:21 → 6 SOUTH 06-15 13:04
PROVIDERS: ADMIT Internal Medicine; ATTEND Internal Medicine
DX: J96.20 Acute and chronic respiratory failure, unspecified whether with hypoxia or hypercapnia (principal); J44.1 Chronic obstructive pulmonary disease with (acute) exacerbation; E44.0 Moderate protein-calorie malnutrition; I50.20 Unspecified systolic (congestive) heart failure; J44.0 Chronic obstructive pulmonary disease with (acute) lower respiratory infection; Z68.1 Body mass index [BMI] 19.9 or less, adult; J20.9 Acute bronchitis, unspecified; I10 Essential (primary) hypertension; I25.10 Atherosclerotic heart disease of native coronary artery without angina pectoris; I11.0 Hypertensive heart disease with heart failure; K21.9 Gastro-esophageal reflux disease without esophagitis; J30.9 Allergic rhinitis, unspecified; F03.90 Unspecified dementia, unspecified severity, without behavioral disturbance, psychotic disturbance, mood disturbance, and anxiety; D64.9 Anemia, unspecified; F32.9 Major depressive disorder, single episode, unspecified; Z82.49 Family history of ischemic heart disease and other diseases of the circulatory system; Z87.891 Personal history of nicotine dependence; Z88.0 Allergy status to penicillin; Z88.8 Allergy status to other drugs, medicaments and biological substances
CPT/HCPCS: 36415; 71010; 80048; 81001; 85007; 85027; 85610; 87804; 93005; 94250; 94640; 94760; J1650; J2270; J2920; J7620

== ENCOUNTER 2016-09-04 05:10 | Emergency (ER) | payer MEDICARE ==
[~2016-09-04] VITALS: Ht 170.2 cm; Wt 49.0 kg
[~2016-09-04 05:10] MED LIST changes: +DOXY100T PO; +LORA0.5T PO
[2016-09-04] MEDS ORDERED: IPRATRPIUM/ALBUTEROL 0.5/2.5MG 3 ML NEBU. NEB ONE (05:45)
[2016-09-04] MEDS ORDERED: predniSONE 20 MG TABLET PO ONE (06:00)
[2016-09-04] MEDS ORDERED: IV NORMAL SALINE 1000ML BAG 1,000 ML IV SCH (06:00)
[2016-09-04 06:05] LABS: BASO % 0 % (0-3); EOS % 0 % (0-3); HEMATOCRIT 35.8 % (39.0-53.0); HEMOGLOBIN 12.3 g/dL (13.0-17.5); LYMPH # 2.2 x10^3/uL (1.0-4.8); LYMPH % 23 % (24-48); MEAN CORPUSCULAR HEMOGLOBIN 32 pg (25-35); MEAN CORPUSCULAR HGB CONC 34 g/dL (31-37); MEAN CORPUSCULAR VOLUME 92 fL (79-100); MONO % 11 % (0-9); NEUT % 65 % (31-73); PLATELET COUNT 293 x10^3/uL (140-400); RED CELL DISTRIBUTION WIDTH 14.2 % (11.5-14.5); WHITE BLOOD COUNT 9.5 x10^3/uL (4.0-11.0)
--- NOTE | 2016-09-04 06:12 | EKG ---
[facility] [address] [place] [address] Test Date: 2016-09-04 Test Time: 05:18:33 Pat Name: BIN ZIMMER Department: Room: Gender: M Check Embosser: DEMARCUS : 1950 Requested By: JULIO BAILON Order Number: [id number] Reading MD: Mayte Simmons Measurements Intervals [place] Rate: 70 P: 90 [place]: 134 QRS: 62 QRSD: 94 T: 32 QT: 342 QTc: 372 Interpretive Statements SINUS RHYTHM ATRIAL PREMATURE COMPLEX(ES) LOW LIMB LEAD VOLTAGE QRS(T) CONTOUR ABNORMALITY CANNOT RULE OUT ANTEROSEPTAL MYOCARDIAL DAMAGE \ Electronically Signed On 09-06-2016 14:03:00 CDT by Mayte Simmons
[2016-09-04 06:14] LABS: CALCIUM 8.6 mg/dL (8.5-10.1); CREATININE 0.7 mg/dL (0.7-1.3); GFR 112.1; POTASSIUM 4.3 mmol/L (3.5-5.1)
[2016-09-04 06:21] LABS: ALBUMIN/GLOBULIN RATIO 1.2 (1.0-1.7); TOTAL BILIRUBIN 0.5 mg/dL (0.2-1.0); TOTAL PROTEIN 5.6 g/dL (6.4-8.2)
--- NOTE | 2016-09-04 06:34 | PHYS DOC ---
Past Medical History Past Medical History: COPD Smoking: Cigarettes Adult General Chief Complaint Chief Complaint: DYSPNEA/RESPIRATOY DISTRESS HPI HPI [id number] male with a history of COPD now presents the emergency department complaining of wheezing and pain with cough. Not have pleuritic pain nor does he have exertional chest pain. He does have a mild productive cough and feels like he might have a pulmonary infection. No nausea vomiting diaphoresis. Patient states this is typical for his symptoms of COPD if he gets an infection. No fevers chills sweats or shaking chills. Review of Systems Review of Systems Constitutional: Denies fever or chills [] Eyes: Denies change in visual acuity, redness, or eye pain [] HENT: Denies nasal congestion or sore throat [] Respiratory: Denies cough or shortness of breath [] Cardiovascular: No additional information not addressed in HPI [] GI: Denies abdominal pain, nausea, vomiting, bloody stools or diarrhea [] : Denies dysuria or hematuria [] Musculoskeletal: Denies back pain or joint pain [] Integument: Denies rash or skin lesions [] Neurologic: Denies headache, focal weakness or sensory changes [] Endocrine: Denies polyuria or polydipsia [] Current Medications Current Medications Current Medications Medications (Trade) Dose Ordered Sig/Red Start Time Stop Time Status Last Admin Dose Admin Albuterol/ Ipratropium (Duoneb) 3 ml 1X ONCE 09/04/16 05:45 09/04/16 05:53 DC 09/04/16 05:48 3 ML Prednisone (Prednisone) 60 mg 1X ONCE 09/04/16 06:00 09/04/16 06:01 DC 09/04/16 06:30 60 MG Sodium Chloride 1,000 ml @ 1,000 mls/hr 1X ONCE 09/04/16 06:45 09/04/16 07:44 Allergies Allergies Allergies Coded Allergies Type Severity Reaction Last Updated Verified Penicillins Allergy Intermediate 03/11/15 Yes sertraline Allergy Intermediate rash 03/24/15 Yes Physical Exam Physical Exam Chronically weak-appearing 66-year-old male cachectic and with chronic stigmata of COPD. Distress normal respiratory rate and pulse ox with mild wheezing bilaterally and scattered rhonchi. Clinical fever. Patient is alert and communicative conversant, cooperative. Her main nerve exam benign Constitutional: Well developed, well nourished, no acute distress, non-toxic appearance. [] HENT: Normocephalic, atraumatic, bilateral external ears normal, oropharynx moist, no oral exudates, nose normal. [] Eyes: PERRLA, EOMI, conjunctiva normal, no discharge. [] Neck: Normal range of motion, no tenderness, supple, no stridor. [] Cardiovascular:Heart rate regular rhythm, no murmur [] Lungs & Thorax: Bilateral breath sounds with mild wheezing and scattered rhonchi Abdomen: Bowel sounds normal, soft, no tenderness, no masses, no pulsatile masses. [] Skin: Warm, dry, no erythema, no rash. [] Back: No tenderness, no CVA tenderness. [] Extremities: No tenderness, no cyanosis, no clubbing, ROM intact, no edema. [] Neurologic: Alert and oriented X 3, normal motor function, normal sensory function, no focal deficits noted. [] Psychologic: Affect normal, judgement normal, mood normal. [] Current Patient Data Vital Signs Vital Signs Date Time Temp Pulse Resp B/P (MAP) Pulse Ox O2 Delivery O2 Flow Rate FiO2 09/04/16 05:49 97 Nasal Cannula 2.0 09/04/16 05:10 98.6 84 22 121/80 (94) 98.6 Lab Values Laboratory Tests Test 09/04/16 05:25 White Blood Count 9.5 x10^3/uL (4.0-11.0) Red Blood Count 3.90 x10^6/uL (4.30-5.70) L Hemoglobin 12.3 g/dL (13.0-17.5) L Hematocrit 35.8 % (39.0-53.0) L Mean Corpuscular Volume 92 fL (79-100) Mean Corpuscular Hemoglobin 32 pg (25-35) Mean Corpuscular Hemoglobin Concent 34 g/dL (31-37) Red Cell Distribution Width 14.2 % (11.5-14.5) Platelet Count 293 x10^3/uL (140-400) Neutrophils (%) (Auto) 65 % (31-73) Lymphocytes (%) (Auto) 23 % (24-48) L Monocytes (%) (Auto) 11 % (0-9) H Eosinophils (%) (Auto) 0 % (0-3) Basophils (%) (Auto) 0 % (0-3) Neutrophils # (Auto) 6.2 x10^3uL (1.8-7.7) Lymphocytes # (Auto) 2.2 x10^3/uL (1.0-4.8) Monocytes # (Auto) 1.1 x10^3/uL (0.0-1.1) Eosinophils # (Auto) 0.0 x10^3/uL (0.0-0.7) Basophils # (Auto) 0.0 x10^3/uL (0.0-0.2) Sodium Level 140 mmol/L (136-145) Potassium Level 4.3 mmol/L (3.5-5.1) Chloride Level 104 mmol/L (98-107) Carbon Dioxide Level 36 mmol/L (21-32) H Anion Gap 0 (6-14) L Blood Urea Nitrogen 24 mg/dL (8-26) Creatinine 0.7 mg/dL (0.7-1.3) Estimated GFR (Cockcroft-Gault) 112.1 BUN/Creatinine Ratio 34 (6-20) H Glucose Level 80 mg/dL (70-99) Calcium Level 8.6 mg/dL (8.5-10.1) Total Bilirubin 0.5 mg/dL (0.2-1.0) Aspartate Amino Transferase (AST) 36 U/L (15-37) Alanine Aminotransferase (ALT) 64 U/L (16-63) H Alkaline Phosphatase 59 U/L (46-116) Troponin I Quantitative < 0.017 ng/mL (0.000-0.055) Total Protein 5.6 g/dL (6.4-8.2) L Albumin 3.0 g/dL (3.4-5.0) L Albumin/Globulin Ratio 1.2 (1.0-1.7) Laboratory Tests 09/04/16 05:25 Laboratory Tests 09/04/16 05:25 EKG EKG EKG with normal sinus rhythm at 70 normal axis no STEMI Radiology/Procedures Radiology/Procedures Chest x-ray with hyperinflation chronic changes no acute disease, no sig change prior study interpreted by me Course & Med Decision Making Course & Med Decision Making Pertinent Labs and Imaging studies reviewed. (See chart for details) Signs and symptoms consistent with COPD exacerbation possibly complicated by bronchitis, viral versus bacterial in elderly male with known chronic disease. Chest x-ray with chronic changes no acute disease. Steroids and neb administered in ED with improvement. Patient does not have pleuritic pain EKG is unremarkable and no further workup or treatment is indicated at this time. He agrees with outpatient follow-up as well as outpatient steroid and nebulizer therapy, and strict return precautions given. Patient aware return immediately for new severe worsening symptoms [] Dragon Disclaimer Dragon Disclaimer This electronic medical record was generated, in whole or in part, using a voice recognition dictation system. Departure Departure Impression: Primary Impression: COPD exacerbation Additional Impression: Bronchitis Disposition: HOME, SELF-CARE Condition: IMPROVED Referrals: DONN AUGUSTINE MD (PCP) Patient Instructions: Chronic Obstructive Pulmonary Disease Exacerbation Additional Instructions: It appears that bronchitis has triggered an attach of your COPD today. Rest. Use your inhaler and nebulizer therapy as needed as prescribed.Finish prednisone as prescribed. use flovent as rx. Follow up with your doctor tomorrow. Return immediately for new, severe, or worsening symptoms. Scripts Azithromycin (ZITHROMAX PACKET) 1 Gm Packet 1 PACKET PO ONCE, #1 PACKET Prov: JULIO BAILON MD 09/04/16 Fluticasone Propionate (FLOVENT 110MCG HFA) 12 Gm Aer.w.adap 2 PUFF IH BID for 14 Days, #1 INHALER 2 Refills Prov: JULIO BAILON MD 09/04/16 Albuterol Sulfate (PROVENTIL HFA INHALER) 6.7 Gm Hfa.aer.ad 1 PUFF IH PRN Q4HRS Y for FOR ASTHMA, #1 INHALER 0 Refills Prov: JULIO BAILON MD 09/04/16 Prednisone (PREDNISONE) 50 Mg Tablet 1 TAB PO DAILY for 5 Days, #5 TAB Prov: JULIO BAILON MD 09/04/16 Problem Qualifiers JULIO BAILON MD Sep 04, 2016 06:34
[2016-09-04] MEDS ORDERED: IV NORMAL SALINE 1000ML BAG 1,000 ML IV ONE (06:45)
--- NOTE | 2016-09-04 07:15 | RAD ---
Portable AP upright view CXR: Clinical indications: Chest pain. Comparison: June 14, 2016. Findings: Left midlung zone lung infiltrate is seen. Chronic scarring is seen within the left lung base. Hyperinflation is seen consistent with COPD. No pleural effusion or pneumothorax is seen. The heart size, pulmonary vasculature, mediastinum and both guy are unremarkable. Impression: Left midlung zone infiltrate.
--- NOTE | 2016-09-04 07:22 | ACF ---
Admission Forms Criteria COPD Clinical Indications for Admission to Inpatient Care (Place 'X' for any and all applicable criteria): Admission is indicated for ANY ONE of the following (1)(2)(3): [ ]I. Acute exacerbation by high-risk comorbidity (e.g., pneumonia, dysrhythmia, heart failure, pleural effusion, pneumothorax) or severe underlying COPD (e.g., steroid dependent) [ ]II. Inpatient admission required rather than observation care (see Chronic Obstructive Pulmonary Disease: Observation Care) because of ANY ONE of the following: [ ]a) New or pre-existing signs or symptoms of COPD (eg, dyspnea or Tachypnea at rest or with minimal activity) that persist despite outpatient and observation care treatment [ ]b) New-onset hypoxemia (room air SaO2 less than 90%, PO2 less than 60 mm Hg (8.0 kPa)) that persists despite outpatient and observation care treatment [ ]c) Worsening of pre-existing hypoxemia (eg, new or increased requirement for supplemental oxygen to maintain oxygenation at baseline level) that persists despite outpatient and observation care treatment, with oxygen treatment needs performable only in acute inpatient setting [ ]d) Hypercarbia (PCO2 greater than 40 mm Hg (5.3 kPa))-induced respiratory acidosis (pH less than 7.35) that persists despite outpatient and observation care treatment [ ]e) Supplemental oxygen or respiratory treatments for over 24 hours that are performable only in acute inpatient setting [ ]f) Chest tube placement with active evacuation (e.g., suction, drainage) (5) [ ]g) Other condition, treatment or monitoring requiring inpatient admission [ ]III. Planned invasive surgical or diagnostic procedures requiring acute- care hospitalization [ ]IV. Acute respiratory failure (e.g., uncompensated hypercarbia, severe hypoxemia) [ ]V. Severe comorbid condition (e.g., severe steroid myopathy, acute vertebral fracture) that has acutely worsened pulmonary function [ ]. Confusion state, lethargy, obtundation, stupor or coma Extended stay beyond goal length of stay may be needed for (31)(32): [ ]a ) Respiratory Failure. [ ]b) Severe or persisting hypoxemia or hypercarbia [ ]c) Severe or persistent dyspnea [ ]d) Comorbidities (e.g. chronic heart failure, atrial fibrillation with rapid response, pneumonia) [ ]e) Malnutrition The original [facility] content created by [facility] has been revised. The portions of the content which have been revised are identified through the use of italic text or in bold, and Ninoska Garcia has neither reviewed nor approved the modified material. All other unmodified content is copyright [facility] [employer]. Please see references footnoted in the original [facility] edition 2016 [place] Sep 04, 2016 07:22
[2016-09-04] MEDS ORDERED: PROVENTIL HFA6.7 GM IH (07:43)
[2016-09-04] MEDS ORDERED: AZIT1PAC PO (07:43)
[2016-09-04] MEDS ORDERED: PRED50TA PO (07:43)
[2016-09-04] MEDS ORDERED: FLUT12AE IH (07:43)
[2016-09-04] MEDS ORDERED: AZITHROMYCIN 250 MG TABLET. PO ONE (08:00)
[2016-09-04 10:10] VITALS: BP 130/62
== END 2016-09-04 10:28 | disposition home or self-care (01) ==
LOC: ER 05:10
DX: J44.1 Chronic obstructive pulmonary disease with (acute) exacerbation (principal); F17.210 Nicotine dependence, cigarettes, uncomplicated; Z88.8 Allergy status to other drugs, medicaments and biological substances; Z88.0 Allergy status to penicillin
CPT/HCPCS: 36415; 71010; 80053; 84484; 85027; 93005; 94640; 96360; 99285; J7030; J7512; J7620; Q0144